=== PATIENT | female | born 1960 | race Caucasian/White ===

== ENCOUNTER 2019-07-10 12:56 | Emergency (ER) | payer SELFPAY ==
[~2019-07-10] VITALS: Ht 152.4 cm; Wt 56.2 kg
[~2019-07-10 12:56] MED LIST: GLU500 PO
[2019-07-10 13:02] VITALS: BP 141/74
--- NOTE | 2019-07-10 13:48 | NUR ---
Patient ambulated to bed 1. RN evaluating patient at bedside.
--- NOTE | 2019-07-10 14:13 | NUR ---
PT STATES FEELS SHE HAS AN INGROWN HAIR TO LEFT VAGINAL MAJORA---SWELLING REDENESS---DENIES SHAVING OR INJURY
[2019-07-10] MEDS ORDERED: cefTRIAXone 1,000 MG VIAL ONE (14:15)
[2019-07-10] MEDS ORDERED: LIDOCAINE MPF 1% 5 ML ONE (14:15)
[2019-07-10] MEDS ORDERED: cefTRIAXone 1,000 MG in LIDOCAINE MPF 1% 2.1 ML IM ONE (14:15)
[2019-07-10] MEDS ORDERED: ACETAMINOPHEN EXTRA STRENGTH 500 MG TAB PO ONE (14:15)
[2019-07-10 14:29] VITALS: BP 141/74
--- NOTE | 2019-07-10 14:30 | NUR ---
Patient discharged with v/s stable. Written and verbal after care instructions given and explained. Patient alert, oriented and verbalized understanding of instructions. Ambulatory with steady gait. All questions addressed prior to discharge. ID band removed. Patient advised to follow up with PMD. Rx of KEFLEX/IBUPROFEN given. Patient educated on indication of medication including possible reaction and side effects. Opportunity to ask questions provided and answered.
== END 2019-07-10 14:30 | disposition home or self-care (01) ==
LOC: MED 12:56
DX: L03.317 Cellulitis of buttock (principal); E11.9 Type 2 diabetes mellitus without complications; Z79.84 Long term (current) use of oral hypoglycemic drugs; Z98.890 Other specified postprocedural states
CPT/HCPCS: 96372; 99283; J0696; J2001